=== PATIENT | male | born 1960 | race Caucasian/White ===

== ENCOUNTER 2023-08-21 08:12 | Emergency (ER) | payer OTHER, MEDICAID ==
[~2023-08-21] VITALS: Ht 175.3 cm; Wt 77.1 kg
[2023-08-21 08:45] VITALS: BP 142/66; PULSE 65; RESP 16; TEMP 97.6; O2SAT 99
[2023-08-21 09:48] VITALS: BP 142/66; PULSE 65; RESP 16; TEMP 97.6; O2SAT 99
== END 2023-08-21 09:48 | disposition home or self-care (01) ==
LOC: MED 08:12
DX: S60.410A Abrasion of right index finger, initial encounter (principal); Z86.69 Personal history of other diseases of the nervous system and sense organs; X58.XXXA Exposure to other specified factors, initial encounter; Y92.89 Other specified places as the place of occurrence of the external cause; Y93.89 Activity, other specified; Y99.8 Other external cause status
CPT/HCPCS: 73140; 90471; 90715; 99283

== ENCOUNTER 2023-08-24 08:26 | Emergency (ER) | payer OTHER, MEDICAID ==
[~2023-08-24] VITALS: Ht 175.3 cm; Wt 72.6 kg
[2023-08-24 08:31] VITALS: BP 119/83; PULSE 60; RESP 18; TEMP 97.6; O2SAT 96
[2023-08-24 09:19] LABS: BASOPHILS % (AUTO) 0.6 % (0.0-2.0); EOSINOPHILS # (AUTO) 0.1 K/uL (0-0.4); EOSINOPHILS % (AUTO) 1.1 % (0.0-4.0); HEMATOCRIT 38.9 % (36-52); HEMOGLOBIN 13.6 g/dL (12.0-18.0); LYMPHOCYTES % (AUTO) 19.9 % (20.5-51.1); MEAN CORPUSCULAR HEMOGLOBIN 32 pg (27-31); MEAN CORPUSCULAR HGB CONC 35 g/dL (33-37); MEAN CORPUSCULAR VOLUME 91.5 fL (80-94); MONOCYTES # (AUTO) 0.4 K/uL (0.8-1.0); MONOCYTES % (AUTO) 9.1 % (1.7-9.3); NEUTROPHILS # (AUTO) 3.4 K/uL (1.8-7.7); NEUTROPHILS % (AUTO) 69.3 % (42.2-75.2); PLATELET COUNT (AUTO) 229 K/uL (140-450); RED BLOOD CELL COUNT(AUTO) 4.25 MIL/uL (4.20-6.10); RED CELL DISTRIBUTION WIDTH 13.6 % (11.6-13.7); WHITE BLOOD COUNT (AUTO) 4.9 K/uL (4.8-10.8)
[2023-08-24 09:36] LABS: ANION GAP 12.9 (8-16); CALCIUM 8.3 mg/dL (8.5-10.1); CARBON DIOXIDE 27.1 mmol/L (21-32); CREATININE 1.3 mg/dL (0.6-1.3)
[2023-08-24 09:38] LABS: APPEARANCE,URINE CLEAR (CLEAR); BILIRUBIN,URINE 1+ (NEGATIVE); BLOOD, URINE NEGATIVE (NEGATIVE); COLOR,URINE YELLOW (YELLOW); LEUKOCYTE ESTERASE ,URINE NEGATIVE (NEGATIVE); NITRITE, URINE NEGATIVE (NEGATIVE); PROTEIN,URINE NEGATIVE (NEGATIVE); UGLUCOSE NEGATIVE (NEGATIVE)
[2023-08-24 09:45] LABS: ALANINE AMINOTRANSFERASE 18 U/L (12-78); ALBUMIN 3.8 g/dL (3.4-5.0); ALKALINE PHOSPHATASE 49 U/L (50-136); ASPARTATE AMINOTRANSFERASE 13 U/L (15-37); BILIRUBIN,DIRECT 0.3 mg/dL (0.0-0.3); MAGNESIUM 1.9 mg/dL (1.8-2.4); PHOSPHORUS 2.4 mg/dL (2.5-4.9); THYROID STIMULATING HORMONE 0.97 uIU/mL (0.34-3.74); TOTAL BILIRUBIN 0.9 mg/dL (0.0-1.0); TOTAL PROTEIN, SERUM 7.1 g/dL (6.4-8.2)
[2023-08-24 09:46] LABS: AMPHETAMINE, URINE NEGATIVE ng/ml (NEG <=1000); BARBITURATE, URINE NEGATIVE ng/ml (NEG <=200); BENZODIAZEPINE, URINE POSITIVE ng/mL (NEG <=200); CANNABINOID, URINE NEGATIVE ng/mL (NEG <=50); COCAINE, URINE NEGATIVE ng/mL (NEG <=300); OPIATE, URINE NEGATIVE ng/mL (NEG <=2000); PHENCYCLIDINE SCREEN,URINE NEGATIVE ng/mL (NEG <=25)
[2023-08-24 09:47] LABS: ICTOTEST NEGATIVE (NEGATIVE)
[2023-08-24 09:49] LABS: BACTERIA,URINE OCCASSIONAL /HPF (None Seen); RBC,URINE 0-5 /HPF (0-5); SQUAMOUS EPITHELIAL CELL,UR 0-3 (FEW) /LPF (0-3 (FEW)); WBC,URINE 0-5 /HPF (0-5)
[2023-08-24 10:05] LABS: ALCOHOL, BLOOD < 3 mg/dL (<10)
[2023-08-24 11:14] VITALS: BP 119/83; PULSE 60; RESP 18; TEMP 97.6; O2SAT 96
== END 2023-08-24 11:14 | disposition home or self-care (01) ==
LOC: MED 08:26
DX: R53.1 Weakness (principal); R29.90 Unspecified symptoms and signs involving the nervous system; Z86.69 Personal history of other diseases of the nervous system and sense organs
CPT/HCPCS: 36415; 70450; 80048; 80076; 80305; 81001; 82140; 82550; 83735; 84100; 84443; 85025; 99284; G0482

== ENCOUNTER 2023-09-05 19:34 | Emergency (ER) | payer OTHER, MEDICAID ==
[~2023-09-05] VITALS: Ht 175.3 cm; Wt 77.1 kg
[2023-09-05 19:42] VITALS: BP 144/96; PULSE 64; RESP 16; TEMP 98; O2SAT 97
[2023-09-05 21:42] LABS: FLU A ANTIGEN negative (NEGATIVE); FLU B ANTIGEN negative (NEGATIVE)
[2023-09-05 21:59] LABS: APPEARANCE,URINE CLEAR (CLEAR); BILIRUBIN,URINE NEGATIVE (NEGATIVE); BLOOD, URINE NEGATIVE (NEGATIVE); COLOR,URINE YELLOW (YELLOW); LEUKOCYTE ESTERASE ,URINE NEGATIVE (NEGATIVE); NITRITE, URINE NEGATIVE (NEGATIVE); PH,URINE 8.5 (5.0-9.0); PROTEIN,URINE NEGATIVE (NEGATIVE); UGLUCOSE NEGATIVE (NEGATIVE)
[2023-09-05 22:08] LABS: AMPHETAMINE, URINE NEGATIVE ng/ml (NEG <=1000); BARBITURATE, URINE NEGATIVE ng/ml (NEG <=200); BENZODIAZEPINE, URINE NEGATIVE ng/mL (NEG <=200); CANNABINOID, URINE NEGATIVE ng/mL (NEG <=50); COCAINE, URINE NEGATIVE ng/mL (NEG <=300); OPIATE, URINE NEGATIVE ng/mL (NEG <=2000); PHENCYCLIDINE SCREEN,URINE NEGATIVE ng/mL (NEG <=25)
[2023-09-05 22:16] LABS: BASOPHILS % (AUTO) 0.2 % (0.0-2.0); EOSINOPHILS % (AUTO) 0.2 % (0.0-4.0); HEMATOCRIT 37.7 % (36-52); HEMOGLOBIN 12.8 g/dL (12.0-18.0); LYMPHOCYTES # (AUTO) 0.5 K/uL (2.0-11.5); LYMPHOCYTES % (AUTO) 9.9 % (20.5-51.1); MEAN CORPUSCULAR HEMOGLOBIN 32 pg (27-31); MEAN CORPUSCULAR HGB CONC 34 g/dL (33-37); MONOCYTES # (AUTO) 0.3 K/uL (0.8-1.0); MONOCYTES % (AUTO) 5.2 % (1.7-9.3); NEUTROPHILS # (AUTO) 4.7 K/uL (1.8-7.7); NEUTROPHILS % (AUTO) 84.5 % (42.2-75.2); PLATELET COUNT (AUTO) 189 K/uL (140-450); RED BLOOD CELL COUNT(AUTO) 4.06 MIL/uL (4.20-6.10); RED CELL DISTRIBUTION WIDTH 13.7 % (11.6-13.7); WHITE BLOOD COUNT (AUTO) 5.5 K/uL (4.8-10.8)
[2023-09-05 22:32] VITALS: BP 119/96; PULSE 58; RESP 16; O2SAT 96
[2023-09-05 22:49] LABS: CHLORIDE 103 mmol/L (98-107); POTASSIUM 3.7 mmol/L (3.5-5.1); SODIUM SERUM 138 mmol/L (136-145)
[2023-09-05 23:14] LABS: ALANINE AMINOTRANSFERASE 9 U/L (12-78); ALBUMIN 3.8 g/dL (3.4-5.0); ALKALINE PHOSPHATASE 50 U/L (50-136); ANION GAP 14.3 (8-16); ASPARTATE AMINOTRANSFERASE 16 U/L (15-37); CALCIUM 8.1 mg/dL (8.5-10.1); CARBON DIOXIDE 24.4 mmol/L (21-32); CREATINE KINASE, TOTAL 141 U/L (39-308); CREATININE 1.1 mg/dL (0.6-1.3); GFR ARICAN-AMERICAN 86 mL/min (>90); GFR NON ARICAN-AMERICAN 71 mL/min (>90); GLUCOSE 102 mg/dL (74-106); TOTAL BILIRUBIN 0.8 mg/dL (0.0-1.0); TOTAL PROTEIN, SERUM 7.3 g/dL (6.4-8.2); UREA NITROGEN, BLOOD 9 mg/dL (7-18)
[2023-09-05] MEDS ORDERED: ACET-10509 PO (23:48)
[2023-09-05] MEDS ORDERED: NIRM1TAB9 PO (23:48)
[2023-09-07] MEDS ORDERED: [UNRECOGNIZED DRUG - CODE] PO (11:38)
[2023-09-07] MEDS ORDERED: NIRM1TAB7 PO (11:43)
[2023-09-07] MEDS ORDERED: LEVE750T3 PO (11:43)
== END 2023-09-06 01:04 | disposition home or self-care (01) ==
LOC: MED 19:34
DX: S09.90XA Unspecified injury of head, initial encounter (principal); U07.1 COVID-19; Z86.69 Personal history of other diseases of the nervous system and sense organs; Z79.899 Other long term (current) drug therapy; W18.39XA Other fall on same level, initial encounter; Y92.89 Other specified places as the place of occurrence of the external cause; Y93.89 Activity, other specified; Y99.8 Other external cause status
CPT/HCPCS: 36415; 70450; 71045; 72125; 80053; 80305; 81003; 82550; 84484; 85025; 87426; 87804; 99284; G0482; Q0092

== ENCOUNTER 2023-09-07 06:30 | Inpatient (IN) | payer OTHER, MEDICAID ==
[~2023-09-07] VITALS: Ht 170.2 cm; Wt 77.1 kg
[~2023-09-07 06:30] MED LIST: ACET-10509 PO; NIRM1TAB9 PO
[2023-09-07 06:36] VITALS: BP 156/82; PULSE 52; RESP 20; TEMP 98; O2SAT 95
[2023-09-07 07:45] LABS: BASOPHILS % (AUTO) 0.7 % (0.0-2.0); EOSINOPHILS # (AUTO) 0.1 K/uL (0-0.4); EOSINOPHILS % (AUTO) 1.4 % (0.0-4.0); HEMATOCRIT 39.6 % (36-52); HEMOGLOBIN 13.6 g/dL (12.0-18.0); LYMPHOCYTES % (AUTO) 19.1 % (20.5-51.1); MEAN CORPUSCULAR HEMOGLOBIN 31 pg (27-31); MEAN CORPUSCULAR HGB CONC 35 g/dL (33-37); MEAN CORPUSCULAR VOLUME 91.1 fL (80-94); MONOCYTES # (AUTO) 0.4 K/uL (0.8-1.0); MONOCYTES % (AUTO) 8.1 % (1.7-9.3); NEUTROPHILS # (AUTO) 3.8 K/uL (1.8-7.7); NEUTROPHILS % (AUTO) 70.7 % (42.2-75.2); PLATELET COUNT (AUTO) 206 K/uL (140-450); RED BLOOD CELL COUNT(AUTO) 4.35 MIL/uL (4.20-6.10); RED CELL DISTRIBUTION WIDTH 13.7 % (11.6-13.7); WHITE BLOOD COUNT (AUTO) 5.4 K/uL (4.8-10.8)
[2023-09-07] MEDS: NACL 0.9% 1,000 ML IV ONE (07:54)
[2023-09-07 07:57] VITALS: O2SAT 97
[2023-09-07 08:00] LABS: CREATININE 1.3 mg/dL (0.6-1.3); POTASSIUM 3.7 mmol/L (3.5-5.1)
[2023-09-07] MEDS ORDERED: ONDANSETRON 4 MG/2 ML VIAL IVP PRN (08:05)
[2023-09-07] MEDS ORDERED: HYDROcodone/APAP 5/325 MG 1 TAB TAB PO PRN (08:05)
[2023-09-07] MEDS ORDERED: ZOLPIDEM 5 MG TAB PO PRN (08:05)
[2023-09-07] MEDS ORDERED: LORazepam 1 MG TAB PO PRN (08:05)
[2023-09-07 08:08] LABS: CREATINE KINASE, TOTAL 244 U/L (39-308)
[2023-09-07 08:09] LABS: LACTIC ACID 0.9 mmol/L (0.4-2.0)
[2023-09-07] MEDS: NACL 0.9% 1,000 ML IV SCH (08:29)
[2023-09-07 08:30] LABS: ANION GAP 10.8 (8-16); CARBON DIOXIDE 27.9 mmol/L (21-32)
[2023-09-07] MEDS: DOCUSATE SODIUM 100 MG GELCAP PO SCH (09:00)
[2023-09-07 09:04] LABS: BLOOD, URINE NEGATIVE (NEGATIVE); COLOR,URINE YELLOW (YELLOW); LEUKOCYTE ESTERASE ,URINE NEGATIVE (NEGATIVE); NITRITE, URINE NEGATIVE (NEGATIVE); PH,URINE 6.5 (5.0-9.0); PROTEIN,URINE 1+ (NEGATIVE); UGLUCOSE NEGATIVE (NEGATIVE)
[2023-09-07 09:45] VITALS: PULSE 57; O2SAT 97
[2023-09-07 10:00] VITALS: BP 157/74; PULSE 57; RESP 18; TEMP 97.6; O2SAT 96
[2023-09-07 10:07] LABS: BACTERIA,URINE OCCASSIONAL /HPF (None Seen); MUCUS,URINE 1+ /LPF (None Seen); RBC,URINE 0-5 /HPF (0-5); SQUAMOUS EPITHELIAL CELL,UR 0-3 (FEW) /LPF (0-3 (FEW)); WBC,URINE 0-5 /HPF (0-5)
[2023-09-07 10:09] LABS: APPEARANCE,URINE SLIGHTLY HAZY (CLEAR); BILIRUBIN,URINE 1+ (NEGATIVE); ICTOTEST NEGATIVE (NEGATIVE)
[2023-09-07] MEDS ORDERED: [UNRECOGNIZED DRUG - CODE] PO (11:38)
[2023-09-07] MEDS ORDERED: NIRM1TAB7 PO (11:43)
[2023-09-07] MEDS ORDERED: LEVE750T3 PO (11:43)
[2023-09-07] MEDS ORDERED: levETIRAcetam 500 MG TAB PO SCH (21:00)
== END 2023-09-07 14:10 | disposition left against medical advice (07) | DRG 177 ==
LOC: MED 06:30 → MMU 08:05
PROVIDERS: ADMIT Student in an Organized Health Care Education/Training Program; ATTEND Student in an Organized Health Care Education/Training Program
DX: U07.1 COVID-19 (principal); J12.82 Pneumonia due to coronavirus disease 2019; Z59.00 Homelessness unspecified; I10 Essential (primary) hypertension; Z53.29 Procedure and treatment not carried out because of patient's decision for other reasons
CPT/HCPCS: 36415; 71045; 80048; 81001; 82550; 83605; 84484; 85025; 87040; 87086; 93005; 97116; 97163-GP; 99285

== ENCOUNTER 2023-09-10 07:52 | Emergency (ER) | payer OTHER, MEDICAID ==
[~2023-09-10] VITALS: Ht 175.3 cm; Wt 78.5 kg
[~2023-09-10 07:52] MED LIST changes: -ACET-10509 PO; +LEVE750T3 PO; +NIRM1TAB7 PO; -NIRM1TAB9 PO; +[UNRECOGNIZED DRUG - CODE] PO
[2023-09-10 08:01] VITALS: BP 162/86; PULSE 59; RESP 18; TEMP 97.1; O2SAT 95
[2023-09-10 09:01] LABS: BASOPHILS % (AUTO) 0.4 % (0.0-2.0); EOSINOPHILS # (AUTO) 0.1 K/uL (0-0.4); EOSINOPHILS % (AUTO) 1.5 % (0.0-4.0); HEMATOCRIT 40.9 % (36-52); LYMPHOCYTES # (AUTO) 1.3 K/uL (2.0-11.5); LYMPHOCYTES % (AUTO) 15.6 % (20.5-51.1); MEAN CORPUSCULAR HEMOGLOBIN 32 pg (27-31); MEAN CORPUSCULAR HGB CONC 34 g/dL (33-37); MONOCYTES # (AUTO) 0.6 K/uL (0.8-1.0); MONOCYTES % (AUTO) 7.8 % (1.7-9.3); NEUTROPHILS % (AUTO) 74.7 % (42.2-75.2); PLATELET COUNT (AUTO) 256 K/uL (140-450); RED BLOOD CELL COUNT(AUTO) 4.45 MIL/uL (4.20-6.10); RED CELL DISTRIBUTION WIDTH 13.8 % (11.6-13.7); WHITE BLOOD COUNT (AUTO) 8.1 K/uL (4.8-10.8)
[2023-09-10 09:25] LABS: ANION GAP 10.7 (8-16); CALCIUM 8.8 mg/dL (8.5-10.1); CARBON DIOXIDE 28.2 mmol/L (21-32); CREATININE 1.3 mg/dL (0.6-1.3); POTASSIUM 3.9 mmol/L (3.5-5.1)
[2023-09-10 09:29] LABS: ALBUMIN 3.9 g/dL (3.4-5.0); BILIRUBIN,DIRECT 0.1 mg/dL (0.0-0.3); TOTAL BILIRUBIN 0.5 mg/dL (0.0-1.0); TOTAL PROTEIN, SERUM 7.6 g/dL (6.4-8.2)
[2023-09-10] MEDS ORDERED: BENZ200C4 PO (09:59)
[2023-09-10 10:16] VITALS: BP 145/82; PULSE 60; RESP 16; TEMP 98; O2SAT 99
== END 2023-09-10 10:16 | disposition home or self-care (01) ==
LOC: MED 07:52
DX: R05.9 Cough, unspecified (principal); R42 Dizziness and giddiness; Z20.822 Contact with and (suspected) exposure to COVID-19; Z86.69 Personal history of other diseases of the nervous system and sense organs; Z79.899 Other long term (current) drug therapy
CPT/HCPCS: 36415; 71045; 80048; 80076; 85025; 99284

== ENCOUNTER 2023-11-29 19:24 | Inpatient (IN) | payer OTHER, MEDICAID ==
[~2023-11-29] VITALS: Ht 172.7 cm; Wt 70.8 kg
[2023-11-29] MEDS: METOCLOPRAMIDE 10 MG/2 ML INJ VIAL IVP ONE (00:20)
[~2023-11-29 19:24] MED LIST changes: +BENZ200C4 PO
[2023-11-29 19:27] VITALS: BP 132/76; PULSE 71; RESP 18; TEMP 98; O2SAT 93
[2023-11-30] VITALS: O2SAT 97
[2023-11-30] MEDS: NACL 0.9% 1,000 ML IV ONE (00:18)
[2023-11-30] MEDS: GLUCAGON 1 MG VIAL IVP ONE (00:38)
[2023-11-30] MEDS ORDERED: ONDANSETRON 4 MG/2 ML VIAL IVP PRN (02:20)
[2023-11-30 04:49] VITALS: O2SAT 97
[2023-11-30] MEDS: NACL 0.9% 1,000 ML IV SCH (04:57)
[2023-11-30 05:54] LABS: BASOPHILS % (AUTO) 0.3 % (0.0-2.0); EOSINOPHILS # (AUTO) 0.1 K/uL (0-0.4); EOSINOPHILS % (AUTO) 0.9 % (0.0-4.0); HEMATOCRIT 40.4 % (36-52); HEMOGLOBIN 13.9 g/dL (12.0-18.0); LYMPHOCYTES # (AUTO) 1.8 K/uL (2.0-11.5); LYMPHOCYTES % (AUTO) 14.4 % (20.5-51.1); MEAN CORPUSCULAR HEMOGLOBIN 31 pg (27-31); MEAN CORPUSCULAR HGB CONC 34 g/dL (33-37); MEAN CORPUSCULAR VOLUME 90.5 fL (80-94); MONOCYTES # (AUTO) 0.9 K/uL (0.8-1.0); MONOCYTES % (AUTO) 6.9 % (1.7-9.3); NEUTROPHILS # (AUTO) 9.6 K/uL (1.8-7.7); NEUTROPHILS % (AUTO) 77.5 % (42.2-75.2); PLATELET COUNT (AUTO) 222 K/uL (140-450); RED BLOOD CELL COUNT(AUTO) 4.46 MIL/uL (4.20-6.10); RED CELL DISTRIBUTION WIDTH 13.6 % (11.6-13.7); WHITE BLOOD COUNT (AUTO) 12.4 K/uL (4.8-10.8)
[2023-11-30 06:55] LABS: ANION GAP 11.5 (8-16); CALCIUM 8.3 mg/dL (8.5-10.1); CARBON DIOXIDE 27.2 mmol/L (21-32); CREATININE 1.2 mg/dL (0.6-1.3); POTASSIUM 3.7 mmol/L (3.5-5.1)
[2023-11-30 07:36] LABS: MAGNESIUM 2.1 mg/dL (1.8-2.4); PHOSPHORUS 3.1 mg/dL (2.5-4.9)
[2023-11-30] MEDS ORDERED: MAGNESIUM OXIDE 400 MG TAB PO PRN (08:15)
[2023-11-30] MEDS ORDERED: POTASSIUM CHLORIDE 10 MEQ TABER PO PRN (08:15)
[2023-11-30 09:00] VITALS: PULSE 65; RESP 18; RESP 65; O2SAT 96
[2023-11-30 09:09] VITALS: BP 115/71; PULSE 74; RESP 14; TEMP 98; O2SAT 96
[2023-11-30] MEDS: levETIRAcetam 100 MG/ML ORASYR PO SCH (11:10)
== END 2023-11-30 14:00 | disposition left against medical advice (07) | DRG 392 ==
LOC: MED 19:24 → MMU 11-30 02:24 → MTU 11-30 06:12
PROVIDERS: ADMIT Nurse Practitioner Family; ATTEND Nurse Practitioner Family
DX: K22.89 Other specified disease of esophagus (principal); R09.A2 Foreign body sensation, throat; Z53.29 Procedure and treatment not carried out because of patient's decision for other reasons; Z86.73 Personal history of transient ischemic attack (TIA), and cerebral infarction without residual deficits; Z79.899 Other long term (current) drug therapy; D72.829 Elevated white blood cell count, unspecified
CPT/HCPCS: 36415; 70490; 71250; 80048; 83735; 84100; 85025; 87040; 87081; J1610; J2765

== ENCOUNTER 2023-12-05 09:02 | Emergency (ER) | payer OTHER, MEDICAID ==
[~2023-12-05] VITALS: Ht 177.8 cm; Wt 68.0 kg
[2023-12-05 09:06] VITALS: BP 119/80; PULSE 55; RESP 15; TEMP 98.2; O2SAT 98
[2023-12-05 10:04] LABS: BASOPHILS % (AUTO) 0.8 % (0.0-2.0); EOSINOPHILS # (AUTO) 0.1 K/uL (0-0.4); EOSINOPHILS % (AUTO) 2.2 % (0.0-4.0); HEMATOCRIT 39.9 % (36-52); HEMOGLOBIN 13.8 g/dL (12.0-18.0); LYMPHOCYTES # (AUTO) 1.1 K/uL (2.0-11.5); LYMPHOCYTES % (AUTO) 23.2 % (20.5-51.1); MEAN CORPUSCULAR HEMOGLOBIN 31 pg (27-31); MEAN CORPUSCULAR HGB CONC 35 g/dL (33-37); MONOCYTES # (AUTO) 0.3 K/uL (0.8-1.0); MONOCYTES % (AUTO) 5.9 % (1.7-9.3); NEUTROPHILS # (AUTO) 3.1 K/uL (1.8-7.7); NEUTROPHILS % (AUTO) 67.9 % (42.2-75.2); PLATELET COUNT (AUTO) 215 K/uL (140-450); RED BLOOD CELL COUNT(AUTO) 4.39 MIL/uL (4.20-6.10); RED CELL DISTRIBUTION WIDTH 13.8 % (11.6-13.7); WHITE BLOOD COUNT (AUTO) 4.5 K/uL (4.8-10.8)
[2023-12-05 10:19] LABS: ANION GAP 10.8 (8-16); CALCIUM 8.3 mg/dL (8.5-10.1); CARBON DIOXIDE 29.1 mmol/L (21-32); CREATININE 1.2 mg/dL (0.6-1.3); POTASSIUM 3.9 mmol/L (3.5-5.1)
[2023-12-05 10:23] LABS: ACETAMINOPHEN < 0.5 ug/ml (10-30); ALANINE AMINOTRANSFERASE 9 U/L (12-78); ALBUMIN 3.7 g/dL (3.4-5.0); ALCOHOL, BLOOD < 3 mg/dL (<10); ALKALINE PHOSPHATASE 61 U/L (50-136); ASPARTATE AMINOTRANSFERASE 18 U/L (15-37); BILIRUBIN,DIRECT 0.4 mg/dL (0.0-0.3); CREATINE KINASE, TOTAL 117 U/L (39-308); SALICYLATE < 2.8 mg/dL (2.8-20.0); TOTAL BILIRUBIN 1.7 mg/dL (0.0-1.0)
[2023-12-05 10:43] LABS: FLU A ANTIGEN negative (NEGATIVE); FLU B ANTIGEN negative (NEGATIVE)
[2023-12-05 10:58] LABS: APPEARANCE,URINE CLEAR (CLEAR); BILIRUBIN,URINE NEGATIVE (NEGATIVE); BLOOD, URINE NEGATIVE (NEGATIVE); COLOR,URINE YELLOW (YELLOW); LEUKOCYTE ESTERASE ,URINE NEGATIVE (NEGATIVE); NITRITE, URINE NEGATIVE (NEGATIVE); PROTEIN,URINE NEGATIVE (NEGATIVE); UGLUCOSE NEGATIVE (NEGATIVE)
[2023-12-05 11:14] LABS: AMPHETAMINE, URINE NEGATIVE ng/ml (NEG <=1000); BARBITURATE, URINE NEGATIVE ng/ml (NEG <=200); BENZODIAZEPINE, URINE POSITIVE ng/mL (NEG <=200); CANNABINOID, URINE NEGATIVE ng/mL (NEG <=50); COCAINE, URINE NEGATIVE ng/mL (NEG <=300); OPIATE, URINE NEGATIVE ng/mL (NEG <=2000); PHENCYCLIDINE SCREEN,URINE NEGATIVE ng/mL (NEG <=25)
[2023-12-05] MEDS ORDERED: LEVE750T8 PO (11:39)
[2023-12-05] MEDS ORDERED: CLON2TAB10 PO (11:39)
[2023-12-05] MEDS ORDERED: [UNRECOGNIZED DRUG - CODE] PO (11:39)
[2023-12-05 16:08] VITALS: BP 134/70; PULSE 88; RESP 20; TEMP 97.3; O2SAT 94
== END 2023-12-05 15:30 | disposition home or self-care (01) ==
LOC: MED 09:02
DX: R53.1 Weakness (principal); R41.82 Altered mental status, unspecified; R42 Dizziness and giddiness; Z20.822 Contact with and (suspected) exposure to COVID-19; Z86.73 Personal history of transient ischemic attack (TIA), and cerebral infarction without residual deficits; Z86.69 Personal history of other diseases of the nervous system and sense organs; Z79.899 Other long term (current) drug therapy
CPT/HCPCS: 36415; 70450; 71045; 72170; 80048; 80076; 80305; 81003; 82550; 82948; 84484; 85025; 87426; 87804; 93005; 99285; G0480; G0482; Q0092